=== PATIENT | female | born 1995 | race Caucasian/White ===

== ENCOUNTER 2017-02-22 03:56 | Emergency (ER) | payer BC ==
[~2017-02-22] VITALS: Ht 167.6 cm; Wt 63.5 kg
[2017-02-22 04:03] VITALS: BP_SYST 116
--- NOTE | 2017-02-22 04:03 | NUR ---
Patient to ER bed 7 to gown for evaluation. Side rails up. Report given to BENIGNO Chen.
[2017-02-22] MEDS ORDERED: CLON0.5T4 PO (04:09)
--- NOTE | 2017-02-22 04:10 | NUR ---
PT IN BED 7 WITH C/O BURNING CHEST PAIN , ANXIETY S/P TAKING BENADRYL, STATED SHE WAS HAVING ALLERGIC RXN TO CATS, DR HUMPHREY AWARE.
--- NOTE | 2017-02-22 04:13 | NUR ---
ER at bedside examining patient.
[2017-02-22] MEDS ORDERED: LORazepam 2 MG/ML VIAL (FOR ER USE) IM ONE (04:30)
[2017-02-22] MEDS ORDERED: methylPREDNISolone SOD SUCC/PF 62.5 MG/ML VIAL IM ONE (04:30)
--- NOTE | 2017-02-22 05:00 | NUR ---
EKG performed at BS . Physician given copy of EKG for review.
[2017-02-22 06:30] VITALS: BP_SYST 112
--- NOTE | 2017-02-22 06:30 | NUR ---
Patient given written and verbal discharge instructions and verbalizes understanding. ER MD discussed with patient the results and treatment provided. Patient in stable condition. ID arm band removed. Rx of prednisone given. Patient educated on pain management and to follow up with PMD. Pain Scale 0/10. Opportunity for questions provided and answered.
== END 2017-02-22 06:30 | disposition home or self-care (01) ==
LOC: SED 03:56
DX: J30.81 Allergic rhinitis due to animal (cat) (dog) hair and dander (principal); F41.9 Anxiety disorder, unspecified
CPT/HCPCS: 71010; 81025; 93005; 96372; 99284; J2060; J2930